=== PATIENT | male | born 1980 | race Caucasian/White ===

== ENCOUNTER 2018-08-17 09:57 | Emergency (ER) | payer MEDICAID, OTHER, SELFPAY ==
[~2018-08-17] VITALS: Ht 182.9 cm; Wt 75.0 kg
[2018-08-17 10:12] VITALS: BP 137/81
[2018-08-17] MEDS ORDERED: BUPR1FIL3 PO (10:22)
== END 2018-08-17 11:25 | disposition home or self-care (01) ==
LOC: ED 11:19
DX: B86 Scabies (principal)
CPT/HCPCS: 99283